=== PATIENT | female | born 1935 | race Caucasian/White ===

== ENCOUNTER 2021-01-27 00:16 | Observation (INO) ==
[2021-01-27] MEDS ORDERED: Isovue-370 500 ML BOTTLE IVP ONE (00:43)
[2021-01-27 01:01] LABS: Basophils % 0.3 %; Eosinophils % 0.5 %; Hematocrit 42.2 % (35.3-44.9); Immature Granulocytes % 0.3 % (0-4); Lymphocytes # 1.2 K/mcL (0.6-4.6); Lymphocytes % 15.3 %; Mean Corpuscular HGB Conc 33.2 g/dL (31.6-35.5); Mean Corpuscular Hemoglobin 28.3 pg (28.0-33.3); Mean Corpuscular Volume 85.4 fL (83.0-100.0); Mean Platelet Volume 10.7 fL (9.4-12.4); Monocytes # 0.5 K/mcL (0.0-1.3); Monocytes % 7.1 %; Neutrophils # 5.9 K/mcL (1.6-8.9); Platelet Count 246 K/mcL (140-400); Red Blood Count 4.94 M/mcL (3.82-4.97); Red Cell Distribution Width 13.8 % (11.5-14.5); Segmented Neutrophils % 76.5 %; White Blood Count 7.7 K/mcL (4.3-11.1)
[2021-01-27 01:08] LABS: INR 1.1; Prothrombin Time 12.4 Seconds (9.4-12.1)
[2021-01-27 01:24] LABS: Alanine Aminotransferase 241 Units/L (7-52); Albumin 4.4 g/dL (3.5-5.7); Albumin/Globulin Ratio 1.6 (1.1-2.2); Alkaline Phosphatase 167 Units/L (34-104); Aspartate Amino Transferase 331 Units/L (13-39); BUN/Creatinine Ratio 31 (6-26); Bilirubin,Direct 0.1 mg/dL (0.0-0.2); Bilirubin,Indirect 0.5 mg/dL (0.0-1.0); Bilirubin,Total 0.6 mg/dL (0.3-1.0); Blood Urea Nitrogen 21 mg/dL (8-23); Calcium 9.2 mg/dL (8.6-10.3); Carbon Dioxide 20 mEq/L (23-29); Chloride 107 mEq/L (98-107); Globulin 2.7 g/dL (2.4-3.5); Glucose 124 mg/dL (70-105); Lipase 60 Units/L (11-82); Osmolality,Calculated 288 (280-300); Potassium 3.9 mEq/L (3.5-5.1); Sodium 137 mEq/L (136-145); Total Protein 7.1 g/dL (6.4-8.9); Troponin I < 0.03 ng/mL (< 0.04); eGFR For African Americans > 60 (> 60); eGFR For Non-African Americans > 60 (> 60)
[2021-01-27] MEDS ORDERED: methylPREDNISolone 125 MG/2 ML VIAL IVP ONE (02:00)
[2021-01-27] MEDS ORDERED: Ipratropium/Albuterol Neb 3 ML IH ONE (02:00)
[2021-01-27] MEDS ORDERED: Aspirin 81 MG TAB.CHEW PO ONE (04:43)
[2021-01-27] MEDS ORDERED: Ondansetron 4 MG/2 ML VIAL IVP PRN (07:42)
[2021-01-27] MEDS ORDERED: Acetaminophen 325 MG TABLET PO PRN (07:42)
[2021-01-27] MEDS ORDERED: Naloxone 0.4 MG/ML INJ IVP PRN ×3 (07:42→08:20)
[2021-01-27] MEDS ORDERED: Regadenoson 0.4 MG/5 ML SYRINGE IVP ONE (09:13)
[2021-01-27 13:59] LABS: Albumin 4.1 g/dL (3.5-5.7); Albumin/Globulin Ratio 1.6 (1.1-2.2); Bilirubin,Indirect 0.4 mg/dL (0.0-1.0); Bilirubin,Total 0.4 mg/dL (0.3-1.0); Globulin 2.5 g/dL (2.4-3.5); Total Protein 6.6 g/dL (6.4-8.9)
[2021-01-27] MEDS ORDERED: atenoloL 25 MG TABLET PO SCH ×2 (15:00→21:00)
[2021-01-27] MEDS: Lisinopril-HCTZ 20-12.5mg TABLET PO SCH (15:33)
[2021-01-27] MEDS: Pantoprazole 40 MG VIAL IVP SCH (15:35)
[2021-01-27 17:09] LABS: Hepatitis B Surface Antigen Nonreactive (Nonreactive)
[2021-01-27 17:38] LABS: Hepatitis B Core IgM Nonreactive (Nonreactive)
[2021-01-27 17:39] LABS: Hepatitis A Antibody IgM Nonreactive (Nonreactive)
[2021-01-28 02:11] LABS: Basophils % 0.3 %; Eosinophils # 0.1 K/mcL (0.0-0.6); Hematocrit 37.4 % (35.3-44.9); Hemoglobin 12.7 g/dL (11.5-15.4); Immature Granulocytes % 0.2 % (0-4); Lymphocytes # 1.5 K/mcL (0.6-4.6); Lymphocytes % 23.3 %; Mean Corpuscular Hemoglobin 29.2 pg (28.0-33.3); Mean Platelet Volume 10.9 fL (9.4-12.4); Monocytes # 0.6 K/mcL (0.0-1.3); Neutrophils # 4.2 K/mcL (1.6-8.9); Platelet Count 248 K/mcL (140-400); Red Blood Count 4.35 M/mcL (3.82-4.97); Segmented Neutrophils % 65.2 %; White Blood Count 6.5 K/mcL (4.3-11.1)
[2021-01-28 02:21] LABS: BUN/Creatinine Ratio 29 (6-26); Blood Urea Nitrogen 20 mg/dL (8-23); Calcium 8.5 mg/dL (8.6-10.3); Carbon Dioxide 23 mEq/L (23-29); Chloride 106 mEq/L (98-107); Glucose 106 mg/dL (70-105); Magnesium 1.9 mg/dL (1.6-2.6); Osmolality,Calculated 285 (280-300); Potassium 3.7 mEq/L (3.5-5.1); Sodium 136 mEq/L (136-145); eGFR For African Americans > 60 (> 60); eGFR For Non-African Americans > 60 (> 60)
[2021-01-28 02:28] LABS: Albumin 3.8 g/dL (3.5-5.7); Albumin/Globulin Ratio 1.7 (1.1-2.2); Bilirubin,Direct 0.1 mg/dL (0.0-0.2); Bilirubin,Indirect 0.2 mg/dL (0.0-1.0); Bilirubin,Total 0.3 mg/dL (0.3-1.0); Globulin 2.3 g/dL (2.4-3.5); Total Protein 6.1 g/dL (6.4-8.9)
[2021-01-28] MEDS: Lisinopril-HCTZ 20-12.5mg TABLET PO SCH (08:36)
[2021-01-28] MEDS: Pantoprazole 40 MG VIAL IVP SCH (08:37)
[2021-01-28] MEDS ORDERED: Multivit/Ca/Min/Fe/FA 1 TAB TABLET PO SCH (09:00)
[2021-01-28 11:05] VITALS: BP 121/71; PULSE 68; TEMP 98.2; O2SAT 92
[2021-02-01 07:37] LABS: HCV Quant Log NOT DETECTED log IU/mL
[2021-02-01 10:43] LABS: HCV Quant Interpretation NOT DETECTED (Not Detected)
== END 2021-01-28 12:03 | disposition home or self-care (01) ==
LOC: 3BNU 00:16 → EMEROOARM 00:16 → SUATTDRO 06:07 → 3BNU 06:52
PROVIDERS: ADMIT Pharmacist; ATTEND Pharmacist